=== PATIENT | female | born 1985 | race Caucasian/White ===

== ENCOUNTER → 2022-11-14 | Outpatient (CLI) | payer OTHER | LOC: M WHC 10:05 | PROVIDERS: ATTEND Nurse Practitioner Family | DX: N60.12 Diffuse cystic mastopathy of left breast (principal); N60.11 Diffuse cystic mastopathy of right breast ==

== ENCOUNTER → 2023-03-08 | Outpatient (REF) | payer OTHER ==
[2023-03-08 17:21] LABS: TOTAL PROTEIN,RANDOM URINE 12.3 MG/DL (0.0-14.0)
[2023-03-08 17:24] LABS: CREATININE,RANDOM URINE 199.8 MG/DL
[2023-03-08 17:59] LABS: APPEARANCE, URINE MANUAL TURBID (CLEAR); COLOR, URINE MANUAL DK YELLOW (YELLOW)
[2023-03-08 18:00] LABS: BILIRUBIN, URINE MANUAL NEGATIVE (NEGATIVE); BLOOD URINE MANUAL NEGATIVE (NEGATIVE); GLUCOSE, URINE (UA) MANUAL NEGATIVE (NEGATIVE); KETONE, URINE MANUAL NEGATIVE (NEGATIVE); LEUKOCYTE ESTERASE, URINE MAN TRACE (NEGATIVE); NITRITE, URINE MANUAL NEGATIVE (NEGATIVE); PROTEIN, URINE MANUAL NEGATIVE (NEGATIVE); UROBILINOGEN, URINE MANUAL NORMAL (NORMAL)
[2023-03-08 18:39] LABS: AMORPHOUS SEDIMENT, URINE MOD AMOUNT (NEGATIVE)
[2023-03-08 18:40] LABS: BACTERIA, URINE NONE SEEN; RBC, URINE NONE SEEN /hpf (0-3); SQUAMOUS EPITHELIAL CELL URINE SMALL AMOUNT /hpf (SMALL AMT); WBC, URINE 0-1 /hpf (0-3)
[2023-03-08 18:41] LABS: HYALINE CAST, URINE NONE SEEN /lpf (0-1)
== END ==
LOC: M SFHCRHEU 10:44
PROVIDERS: ATTEND Internal Medicine
DX: R76.8 Other specified abnormal immunological findings in serum (principal); R53.83 Other fatigue